=== PATIENT | female | born 1950 | race Caucasian/White ===

== ENCOUNTER 2021-07-11 19:00 | Outpatient (CLI) | payer MEDICARE, OTHER | END 2021-07-11 19:01 | disposition home or self-care (01) | LOC: SLEEPLAB 19:00 | PROVIDERS: ATTEND Internal Medicine Pulmonary Disease | DX: G47.31 Primary central sleep apnea (principal); R53.83 Other fatigue; R06.83 Snoring | CPT/HCPCS: 95810 ==

== ENCOUNTER 2022-09-04 14:00 | Outpatient (CLI) | payer MEDICARE, OTHER | END 2022-09-04 14:01 | disposition home or self-care (01) | LOC: SLEEPLAB 14:00 | PROVIDERS: ATTEND Internal Medicine Critical Care Medicine | DX: G47.33 Obstructive sleep apnea (adult) (pediatric) (principal) | CPT/HCPCS: 95800; 95801 ==

== ENCOUNTER 2022-12-03 14:49 | Outpatient (CLI) | payer MEDICARE, OTHER | END 2022-12-03 14:50 | disposition home or self-care (01) | LOC: BICRAD 14:49 | PROVIDERS: ATTEND Internal Medicine Rheumatology | DX: M25.551 Pain in right hip (principal); M25.552 Pain in left hip ==